=== PATIENT | female | born 1945 | race Hispanic/Latino ===

== ENCOUNTER 2017-06-20 11:00 | Day surgery (SDC) | payer MEDICARE, OTHER ==
[~2017-06-20 11:00] MED LIST: IOPIDINE ONE; MYDRIACYL ONE; NEOFRIN ONE
[2017-06-20] MEDS ORDERED: MYDRIACYL OD ONE (11:35)
[2017-06-20] MEDS ORDERED: IOPIDINE OD ONE (11:35)
[2017-06-20] MEDS ORDERED: NEOFRIN OD ONE (11:35)
[2017-06-20 12:50] VITALS: BP 133/83
== END 2017-06-20 11:01 | disposition home or self-care (01) ==
LOC: OR 11:00
PROVIDERS: ATTEND Specialist
DX: H26.491 Other secondary cataract, right eye (principal)

== ENCOUNTER 2017-06-27 11:01 | Day surgery (SDC) | payer MEDICARE, OTHER ==
[~2017-06-27 11:01] MED LIST changes: +AK-Dilate ONE; -NEOFRIN ONE
[2017-06-27] MEDS ORDERED: PHENYLEPHRINE HCL OS ONE (11:26)
[2017-06-27] MEDS ORDERED: IOPIDINE OS ONE (11:26)
[2017-06-27] MEDS ORDERED: MYDRIACYL OS ONE (11:26)
[2017-06-27 13:44] VITALS: BP 144/80
== END 2017-06-27 13:51 | disposition home or self-care (01) ==
LOC: OR 11:01
PROVIDERS: ATTEND Specialist
DX: H26.491 Other secondary cataract, right eye (principal)

== ENCOUNTER 2017-11-25 08:41 | Outpatient (CLI) | payer MEDICARE, OTHER ==
--- NOTE | 2017-11-25 13:21 | XRay Report ---
XRAY RIGHT KNEE 4 THREE VIEWS: 11/25/17 CLINICAL: Right knee pain. FINDINGS: Mild osteopenia. Medial joint space narrowing and mild widening of the lateral joint space producing a mild varus deformity. No fracture or dislocation. Small medial osteophytes. Minimal patellofemoral osteoarthritis. No joint effusion.Normal soft tissues. IMPRESSION: Mild medial joint space osteoarthritis.
== END 2017-11-25 08:42 | disposition home or self-care (01) ==
LOC: XRAY 08:41
PROVIDERS: ATTEND Orthopaedic Surgery
DX: M17.11 Unilateral primary osteoarthritis, right knee (principal); M21.161 Varus deformity, not elsewhere classified, right knee; M85.861 Other specified disorders of bone density and structure, right lower leg

== ENCOUNTER 2017-12-25 10:25 | Outpatient (CLI) | payer MEDICARE, OTHER ==
--- NOTE | 2017-12-26 12:59 | Magnetic Resonance Report ---
MRI RIGHT KNEE WITHOUT CONTRAST: 12/25/17 CLINICAL: Chondromalacia and osteoarthritis. COMPARISON: X-ray 11/25/17 TECHNIQUE: Sagittal proton density fat sat and T2, coronal T2 fat sat and proton density and axial gradient T2*sequences a 1.5 Ann magnet. FINDINGS: Tear of the posterior horn medial meniscus with oblique signal extending to the inferior articular surface and horizontal signal extending to the body of the meniscus. Osteoarthritis of the medial joint space with narrowing of the joint space, small osteophytes and partial extrusion of the medial meniscus. Full-thickness thinning of the medial femoral cartilage along with subchondral geodes and irregularity of the medial femoral condyle. The lateral meniscus is intact. Intact anterior cruciate and posterior cruciate ligaments. The collateral ligaments are intact. Normal overall marrow signal with no bone contusion or fracture. Small knee joint effusion. The posterolateral corner structures including the popliteus tendon are intact. Moderate thickening of the lateral patellar cartilage and small subchondral geodes of the superolateral patella. The patellar tendon and retinaculum are intact. No popliteal cysts. The muscles have normal signal and are normal size. IMPRESSION: 1. 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 2. Full-thickness cartilage loss of the medial femoral condyle and moderate medial joint osteoarthritis. 3. 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 4. No ligamentous injury. 5. Small knee joint effusion.
== END 2017-12-25 10:26 | disposition home or self-care (01) ==
LOC: SPVIMAG 10:25
PROVIDERS: ATTEND Orthopaedic Surgery
DX: S83.241A Other tear of medial meniscus, current injury, right knee, initial encounter (principal); M17.11 Unilateral primary osteoarthritis, right knee; M94.261 Chondromalacia, right knee; X58.XXXA Exposure to other specified factors, initial encounter; Y93.89 Activity, other specified; Y92.89 Other specified places as the place of occurrence of the external cause; Y99.8 Other external cause status
CPT/HCPCS: 73721